=== PATIENT | female | born 1995 | race Caucasian/White ===

== ENCOUNTER 2017-05-16 08:36 | Emergency (ER) | payer OTHER ==
[~2017-05-16] VITALS: Ht 167.6 cm; Wt 52.2 kg
[~2017-05-16 08:36] MED LIST: HYDR-757 PO; IBUP-1773 PO; ORTHO TRICYCLINE
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
[2017-05-16] MEDS ORDERED: ACETAMINOPHEN 500 MG TAB (TYLENOL) PO ONE (09:00)
[2017-05-16] MEDS ORDERED: IBUPROFEN 800 MG (MOTRIN) TAB PO ONE (09:00)
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
== END 2017-05-16 09:41 | disposition home or self-care (01) ==
LOC: EDUNIT# 08:36 → ER 08:40
DX: G44.201 Tension-type headache, unspecified, intractable (principal); J30.2 Other seasonal allergic rhinitis; Z88.1 Allergy status to other antibiotic agents
CPT/HCPCS: 84703; 99283

== ENCOUNTER 2017-07-30 08:12 | Day surgery (SDC) | payer OTHER ==
[~2017-07-30] VITALS: Ht 167.6 cm; Wt 52.2 kg
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
[2017-07-30] MEDS ORDERED: NS IV 500 ML 500 ML ONE (08:40)
[2017-07-30] MEDS ORDERED: NS IV 500 ML 500 ML IV PRN (08:44)
[2017-07-30] MEDS ORDERED: HURRICAINE EXT TUBE (BENZOCAINE) XX PRN (08:45)
[2017-07-30 08:57] VITALS: BP 119/83
[2017-07-30] MEDS ORDERED: HURRICAINE EXT TUBE (BENZOCAINE) ONE (09:25)
[2017-07-30] MEDS ORDERED: fentaNYL INJECTION 100 MCG/2 ML AMP ONE (09:25)
[2017-07-30] MEDS ORDERED: MIDAZOLAM 2 MG/2 ML (VERSED) VIAL ONE ×4 (09:25)
[2017-07-30] MEDS: fentaNYL INJECTION 100 MCG/2 ML AMP IVP PRN ×2 (09:32→09:34)
[2017-07-30] MEDS: MIDAZOLAM 2 MG/2 ML (VERSED) VIAL IVP PRN ×4 (09:33→09:40)
--- NOTE | 2017-07-30 09:52 | History & Physicial ---
History of Present Illness History of Present Illness Reason for visit/HPI to undergo an upper endoscopy regarding dysphagia with a sensation of food impaction, that she experienced 3 days ago. Denies any ongoing symptoms of reflux disease. Date of Admission 07/30/17 Date Seen by Provider: July 30, 2017 Time Seen by Provider: 09:00 I consulted on this patient on 07/30/17 09:50 Attending Physician Franck Munoz MD Admitting Physician Cristino West MD Consult Allergies and Home Medications Allergies Coded Allergies: amoxicillin (Unverified Allergy, Mild, 07/26/12) Home Medications [Ortho Tricycline] , DAILY, (Reported) Patient Home Medication List Home Medication List Reviewed: Yes Past Qyqbqxf-Juvour-Hmnupb Hx Patient Social History Marrital Status: single Employed/Student: employed Alcohol Use: Denies Use Recreational Drug Use: No Smoking Status: Never a Smoker Recent Foreign Travel: No Contact w/other who traveled: No Recent Hopitalizations: No Recent Infectious Disease Expo: No Seasonal Allergies Seasonal Allergies: No Surgeries Yes (COLONOSCOPY) Respiratory No Cardiovascular No Neurological No Gastrointestinal No Musculoskeletal No Endocrine History of Endocrine Disorders: No HEENT History of HEENT Disorders: No Cancer No Psychosocial History of Psychiatric Problem: No Integumentary History of Skin or Integumenta: No Family Medical History Significant Family History: No Pertinent Family Hx Constitutional: no symptoms reported EENTM: no symptoms reported Respiratory: no symptoms reported Cardiovascular: no symptoms reported Gastrointestinal: see HPI Genitourinary: no symptoms reported Musculoskeletal: no symptoms reported Skin: no symptoms reported Psychiatric/Neurological: No Symptoms Reported Physical Exam Vital Signs Vital Signs - First Documented 07/30/17 08:57 Temp 99.1 Pulse 66 Resp 16 B/P (MAP) 119/83 (95) Pulse Ox 100 O2 Delivery Room Air Capillary Refill : General Appearance: No Apparent Distress, Anxious Neck: Normal Inspection Respiratory: Lungs Clear Cardiovascular: Regular Rate, Rhythm Gastrointestinal: Non Tender, Soft Extremity: Normal Inspection Neurologic/Psychiatric: Oriented x3 Skin: Warm/Dry Assessment/Plan Assessment and Plan lady with a dysphagia possibly due to a peptic stricture. For upper endoscopy with the potential for balloon dilatation. Admission Diagnosis Admission Status: Other (Outpt Proc) FRANCK MUNOZ MD July 30, 2017 9:52 am
--- NOTE | 2017-07-30 09:52 | Conscious Sedation/ASA ---
Conscious Sedation Pre-Proced Time Reviewed: 09:00 ASA Class: 1 Airway Mallampati Classification: ([place] appropriate class) I. II. III, IV Lungs Heart ASA score ASA 1: a normal healthy patient ASA 2: a patient with a mild systemic disease (mid diabetes, controlled hypertension, obesity ASA 3: a patient with a severe systemic disease that limits activity (angina , COPD, prior Myocardial infarction) ASA 4: a patient with an incapacitating disease that is a constant threat to life (CHF, renal failure) ASA 5: a moribund patient not expected to survive 24 hrs. (ruptured aneurysm) ASA 6: a declared brain patient whose organs are being harvested. For emergent operations, add the letter E after the classification Grade 1 Sedation Plan: Discussed options with patient/fam Note The patient is an appropriate candidate to undergo the planned procedure, sedation, and anesthesia. The patient immediately re-assessed prior to indication. FRANCK GUAJARDO MD July 30, 2017 9:52 am
--- NOTE | 2017-07-30 09:56 | Endo Procedure Record ---
Endo Procedure Report Date of Procedure Last Colonoscopy: No July 30, 2017 Surgeon (s) FRANCK GUAJARDO MD Post Procedure/Op Diagnosis Peptic esophageal stricture Procedure Performed Upper GI endoscopy with balloon dilatation to 18 mm Description of Procedure Anesthesia Type: Conscious Sedation Specimen(s) collected/removed none Description of the Procedure Indication for the procedure: This lady came in for an upper endoscopy to evaluate recent onset of dysphagia precipitated by a sensation of foreign impaction in her esophagus quite recently. Description of procedure: She was placed in left lateral decubitus position and her vital signs were monitored. Conscious sedation was achieved using Versed and fentanyl. The flexible gastroscope was introduced down the esophagus, past the stomach, into the proximal duodenum. Findings: Esophagus: Smooth, concentric stricture at the distal end. It had the appearance of a peptic stricture and therefore dilated to 18 mm with a balloon. Stomach and duodenum were normal She tolerated the procedure well and was taken back to the nursing area in a stable condition. Impression: Dysphagia due to a peptic stricture. Balloon dilatation completed. Recommend proton pump inhibitor therapy.ndication for the procedure: This lady presented with a feeling of food impaction in her esophagus, 3 days ago and continued to suffer dysphagia. Therefore, it was felt reasonable to perform an upper endoscopy. The potential for balloon dilatation was discussed with her. Copy Copies To 1: MARCO A WARE MD, XAVIER M MD July 30, 2017 9:56 am
--- NOTE | 2017-07-30 09:58 | Discharge Inst-Simple/Standard ---
Discharge Inst-Standard Discharge Medications New, Converted or Re-Newed RX: Other Patient Instructions/Follow Up Plan of Care/Instructions/FU: Please call for Protonix 40 mg daily for 30 days with 5 refills. Follow-up with her primary as needed Activity as Tolerated: Yes Discharge Diet: No Restrictions FRANCK GUAJARDO MD July 30, 2017 9:58 am
[2017-07-30 10:15] VITALS: BP 106/56
[2017-07-30 10:40] VITALS: BP 107/58
[2017-07-30 10:45] VITALS: BP 107/58
== END 2017-07-30 10:45 | disposition home or self-care (01) ==
LOC: ENDO 08:12
PROVIDERS: ATTEND Surgery
DX: K22.2 Esophageal obstruction (principal)
CPT/HCPCS: 84703

== ENCOUNTER 2017-12-19 04:54 | Emergency (ER) | payer OTHER, MEDICAID ==
[~2017-12-19] VITALS: Ht 162.6 cm; Wt 56.2 kg
[~2017-12-19 04:54] MED LIST changes: +HYDR-4226 PO; -HYDR-757 PO
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
[2017-12-19 07:07] VITALS: BP 121/63
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
== END 2017-12-19 07:08 | disposition home or self-care (01) ==
LOC: EDUNIT# 04:54 → ER 04:56
DX: M25.511 Pain in right shoulder (principal); M54.2 Cervicalgia; R40.2142 Coma scale, eyes open, spontaneous, at arrival to emergency department; R40.2252 Coma scale, best verbal response, oriented, at arrival to emergency department; R40.2362 Coma scale, best motor response, obeys commands, at arrival to emergency department; Z88.0 Allergy status to penicillin; Y08.89XA Assault by other specified means, initial encounter; Y92.143 Cell of prison as the place of occurrence of the external cause
CPT/HCPCS: 73000; 84703

== ENCOUNTER → 2020-09-12 | Outpatient (CLI) | payer SELFPAY ==
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
== END ==
LOC: RAD 17:58
PROVIDERS: ATTEND Nurse Practitioner Family
DX: S93.491A Sprain of other ligament of right ankle, initial encounter (principal); X58.XXXA Exposure to other specified factors, initial encounter
CPT/HCPCS: 73610

== ENCOUNTER 2021-04-22 09:10 | Emergency (ER) | payer MEDICAID ==
[~2021-04-22] VITALS: Ht 167.7 cm; Wt 56.2 kg
--- NOTE | 2021-04-22 09:37 | ED GU-Female ---
General Stated Complaint: VAG BLEED Source: patient Exam Limitations: no limitations History of Present Illness Date Seen by Provider: Apr 22, 2021 Time Seen by Provider: 09:18 Initial Comments 25-year-old female at roughly 9 weeks gestation coming in due to vaginal bleeding. She follows with Dr. SOUZA and has had a confirmed intrauterine based on ultrasound. 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 Vaginal bleeding starting around 2 AM this morning and has been significant. She saturated more than 5 pads and has been bleeding through them, and has blood through multiple sets of clothes. Denies any chest pain, shortness of breath, severe abdominal pain, diarrhea, vomiting, fever, or any other concerns. She is having some abdominal cramping. Allergies and Home Medications Allergies Coded Allergies: amoxicillin (Unverified Allergy, Mild, 07/26/12) Patient Home Medication List Home Medication List Reviewed: Yes [Ortho Tricycline] , DAILY, (Reported) Entered as Reported by: JUANCARLOS SANDY on 07/22/12 3178 Review of Systems Review of Systems Constitutional: No chills, No fever EENTM: No blurred vision Respiratory: No cough, No short of breath Cardiovascular: No chest pain Gastrointestinal: No abdominal pain Genitourinary: denies burning Musculoskeletal: no symptoms reported Skin: no symptoms reported Psychiatric/Neurological: No Symptoms Reported Endocrine: No Symptoms Reported Hematologic/Lymphatic: No Symptoms Reported All Other Systemes Reviewed Negative Unless Noted: Yes Past Esxqqnc-Rrqcdx-Bzcnny Hx Patient Social History Tobacco Use?: No Seasonal Allergies Seasonal Allergies: No Past Medical History Surgeries: Yes (COLONOSCOPY and EGD) Respiratory: No Cardiac: No Neurological: No Reproductive Disorders: No Genitourinary: No Gastrointestinal: No Musculoskeletal: No Endocrine: No HEENT: No Cancer: No Psychosocial: No Integumentary: No Family Medical History No Pertinent Family Hx Physical Exam Vital Signs Vital Signs - First Documented 04/22/21 09:20 Temp 36.5 Pulse 120 Resp 18 B/P (MAP) 123/79 (94) O2 Delivery Room Air Capillary Refill : Height, Weight, BMI Height: 5'4.00" Weight: 124lbs. 0.0oz. [id number]; 18.6 BMI Method:Stated General Appearance: WD/WN, other (Blood saturating her pants) HEENT: PERRL/EOMI, normal ENT inspection, pharynx normal Neck: non-tender, full range of motion, supple Cardiovascular: regular rate, rhythm, no edema, no murmur Respiratory: chest non-tender, lungs clear, normal breath sounds, no respiratory distress, no accessory muscle use Gastrointestinal: normal bowel sounds, non tender, soft; No distended, No guarding, No rebound Pelvic: other (cervical os appears slightly open with products of conception within it and significant amount of bleeding) Back: normal inspection, no CVA tenderness, no vertebral tenderness Extremities: normal range of motion, non-tender, normal inspection, no pedal edema, no calf tenderness Neurologic/Psychiatric: no motor/sensory deficits, alert, normal mood/affect Skin: normal color, warm/dry Lymphatic: no adenopathy Progress/Results/Core Measures Suspected Sepsis SIRS Temperature: Pulse: Respiratory Rate: Laboratory Tests 04/22/21 09:32: White Blood Count 13.3H Blood Pressure / Mean: Laboratory Tests 04/22/21 09:32: Creatinine 0.69, INR Comment 1.1, Platelet Count 283, Total Bilirubin 1.2H Results/Orders Lab Results Laboratory Tests Test 04/22/21 09:32 04/22/21 11:20 Range/Units White Blood Count 13.3 H 4.3-11.0 10^3/uL Red Blood Count 4.30 3.80-5.11 10^6/uL Hemoglobin 12.7 11.4 L 11.5-16.0 g/dL Hematocrit 36 33 L 35-52 % Mean Corpuscular Volume 84 80-99 fL Mean Corpuscular Hemoglobin 30 25-34 pg Mean Corpuscular Hemoglobin Concent 35 32-36 g/dL Red Cell Distribution Width 12.7 10.0-14.5 % Platelet Count 283 130-400 10^3/uL Mean Platelet Volume 10.7 9.0-12.2 fL Immature Granulocyte % (Auto) 0 % Neutrophils (%) (Auto) 73 42-75 % Lymphocytes (%) (Auto) 19 12-44 % Monocytes (%) (Auto) 7 0-12 % Eosinophils (%) (Auto) 0 0-10 % Basophils (%) (Auto) 1 0-10 % Neutrophils # (Auto) 9.7 H 1.8-7.8 10^3/uL Lymphocytes # (Auto) 2.5 1.0-4.0 10^3/uL Monocytes # (Auto) 0.9 0.0-1.0 10^3/uL Eosinophils # (Auto) 0.0 0.0-0.3 10^3/uL Basophils # (Auto) 0.1 0.0-0.1 10^3/uL Immature Granulocyte # (Auto) 0.1 0.0-0.1 10^3/uL Prothrombin Time 14.4 12.2-14.7 SEC INR Comment 1.1 0.8-1.4 Activated Partial Thromboplast Time 29 24-35 SEC Urine Color RED H Urine Clarity SL CLOUDY Urine pH 5.0 5-9 Urine Specific [place] >=1.030 1.016-1.022 Urine Protein 3+ H NEGATIVE Urine Glucose (UA) NEGATIVE NEGATIVE Urine Ketones 2+ H NEGATIVE Urine Nitrite POSITIVE H NEGATIVE Urine Bilirubin NEGATIVE NEGATIVE Urine Urobilinogen 2.0 < = 1.0 MG/DL Urine Leukocyte Esterase 2+ H NEGATIVE Urine RBC (Auto) 3+ H NEGATIVE Urine RBC TNTC H /HPF Urine WBC 5-10 H /HPF Urine Squamous Epithelial Cells 0-2 /HPF Urine Crystals NONE /LPF Urine Bacteria FEW H /HPF Urine Casts NONE /LPF Urine Mucus SMALL H /LPF Urine Culture Indicated YES Sodium Level 135 135-145 MMOL/L Potassium Level 3.7 3.6-5.0 MMOL/L Chloride Level 105 98-107 MMOL/L Carbon Dioxide Level 18 L 21-32 MMOL/L Anion Gap 12 5-14 MMOL/L Blood Urea Nitrogen 7 7-18 MG/DL Creatinine 0.69 0.60-1.30 MG/DL Estimat Glomerular Filtration Rate 125 BUN/Creatinine Ratio 10 Glucose Level 102 70-105 MG/DL Calcium Level 9.5 8.5-10.1 MG/DL Corrected Calcium 9.3 8.5-10.1 MG/DL Total Bilirubin 1.2 H 0.1-1.0 MG/DL Aspartate Amino Transf (AST/SGOT) 17 5-34 U/L Alanine Aminotransferase (ALT/SGPT) 11 0-55 U/L Alkaline Phosphatase 34 L 40-136 U/L Total Protein 7.5 6.4-8.2 GM/DL Albumin 4.2 3.2-4.5 GM/DL Human Chorionic Gonadotropin, Quant [id number] H <5 MIU/ML My Orders Orders - DEANA DOMINGO MD Cbc With Automated Diff (04/22/21 09:32) Comprehensive Metabolic Panel (04/22/21 09:32) Hcg,Quantitative (04/22/21 09:32) Protime With Inr (04/22/21 09:32) Partial Thromboplastin Time (04/22/21 09:32) Ua Culture If Indicated (04/22/21 09:32) Type And Screen (04/22/21 09:32) Urine Culture (04/22/21 09:32) Misoprostol Tablet (Cytotec Tablet) (04/22/21 09:58) Misoprostol Tablet (Cytotec Tablet) (04/22/21 10:00) Hemoglobin And Hematocrit (04/22/21 11:17) Us Ob<14 Wks Sngle W/Transvag (04/22/21 10:00) Vital Signs/I&O 04/22/21 09:20 Temp 36.5 Pulse 120 Resp 18 B/P (MAP) 123/79 (94) O2 Delivery Room Air Capillary Refill : Progress Note : Progress Note 25-year-old female with above history coming in due to vaginal bleeding while being . ABCs were intact and vitals were stable on presentation. She did have a confirmed intrauterine so this is not an ectopic . Pelvic exam was performed with a female nurse as a robotics testing technician. She did have what appeared to be products of conception within her cervical os. I was able to pull these out and the bleeding did slow down but continued. Contacted Dr. Souza can under his recommendations give the patient p.o. Cytotec 600 mg. Ultrasound was ordered to assess for any retained products of conception within her uterus. Basic labs including CBC and type and screen also ordered. Ultrasound with some blood and potentially retained products of conception. Dr. Souza did personally evaluate the patient and believes the bleeding has slowed down significantly and she would be stable to go home with outpatient follow-up. He recommends repeat doses of Cytotec at home which I have written for. Repeat hematocrit from 36-33 which is expected. Vitals remained stable on reassessment. Blood type is O+ so she will not require treatment for her Rh type. The patient was discharged home in stable condition with strict return precautions. Departure Impression Primary Impression: Miscarriage at 8 to 28 weeks gestation Additional Impression: UTI (urinary tract infection) Qualified Codes: N39.0 - Urinary tract infection, site not specified Disposition: 01 HOME, SELF-CARE Condition: Stable Departure-Patient Inst. Decision time for Depature: 12:11 Referrals: MARCO A WARE MD (PCP/Family) Primary Care Physician Patient Instructions: Miscarriage (DC), Urinary Tract Infection, Adult ED Add. Discharge Instructions: Please take the Cytotec which is the medicine he took in the emergency department every 4 hours x 2 doses today. It also looks like he may have a small urinary tract infection so we have sent antibiotics to your pharmacy which she will take for the next 5 days as well. Please follow-up with Dr. Souza. If bleeding increases significantly then please come back to the ER. The Cytotec will cause significant cramping which you can take Tylenol for. Scripts Misoprostol (Cytotec) 200 Mcg Tablet 600 MCG PO Q4H for 1 Day, #2 TAB for 2 doses total Prov: DEANA DOMINGO MD 04/22/21 Nitrofurantoin Macrocrystal (Nitrofurantoin) 100 Mg Capsule 100 MG PO BID for 5 Days, #10 CAP Prov: DEANA DOMINGO MD 04/22/21 Work/School Note: Work Release Form Date Seen in the Emergency Department: Apr 22, 2021 Return to Work: Apr 24, 2021 Restrictions: No Restrictions DEANA DOMINGO MD Apr 22, 2021 09:37
[2021-04-22 09:39] LABS: BASOPHILS # (AUTO) 0.1 10^3/uL (0.0-0.1); BASOPHILS % (AUTO) 1 % (0-10); BILIRUBIN,URINE NEGATIVE (NEGATIVE); CLARITY,URINE SL CLOUDY; COLOR,URINE RED; EOSINOPHILS % (AUTO) 0 % (0-10); GLUCOSE, URINE (UA) NEGATIVE (NEGATIVE); HEMATOCRIT 36 % (35-52); HEMOGLOBIN 12.7 g/dL (11.5-16.0); KETONES,URINE 2+ (NEGATIVE); LEUKOCYTE ESTERASE ,URINE 2+ (NEGATIVE); LYMPHOCYTES # (AUTO) 2.5 10^3/uL (1.0-4.0); LYMPHOCYTES % (AUTO) 19 % (12-44); MEAN CORPUSCULAR HEMOGLOBIN 30 pg (25-34); MEAN CORPUSCULAR HGB CONC 35 g/dL (32-36); MEAN CORPUSCULAR VOLUME 84 fL (80-99); MEAN PLATELET VOLUME 10.7 fL (9.0-12.2); MONOCYTES # (AUTO) 0.9 10^3/uL (0.0-1.0); MONOCYTES % (AUTO) 7 % (0-12); NEUTROPHILS # (AUTO) 9.7 10^3/uL (1.8-7.8); NEUTROPHILS % (AUTO) 73 % (42-75); NITRITE,URINE POSITIVE (NEGATIVE); PLATELET COUNT 283 10^3/uL (130-400); PROTEIN,URINE 3+ (NEGATIVE); WHITE BLOOD COUNT 13.3 10^3/uL (4.3-11.0)
[2021-04-22 09:48] LABS: ALBUMIN 4.2 GM/DL (3.2-4.5)
[2021-04-22 09:49] LABS: POTASSIUM 3.7 MMOL/L (3.6-5.0)
[2021-04-22 09:50] LABS: CALCIUM 9.5 MG/DL (8.5-10.1)
[2021-04-22 09:51] LABS: TOTAL PROTEIN 7.5 GM/DL (6.4-8.2)
[2021-04-22 09:53] LABS: BILIRUBIN,TOTAL 1.2 MG/DL (0.1-1.0)
[2021-04-22 09:55] LABS: CREATININE SERUM 0.69 MG/DL (0.60-1.30)
[2021-04-22 09:57] LABS: BACTERIA,URINE FEW /HPF; INR 1.1 (0.8-1.4); PROTHROMBIN TIME PATIENT 14.4 SEC (12.2-14.7); RBC,URINE TNTC /HPF; SQUAMOUS EPITHELIAL CELL,UR 0-2 /HPF
[2021-04-22 11:30] LABS: HEMOGLOBIN 11.4 g/dL (11.5-16.0)
--- NOTE | 2021-04-22 11:37 | Diagnostic Imaging Report ---
INDICATION: Positive test. Now with heavy vaginal bleeding and cramping. COMPARISON: None. TECHNIQUE: Routine transpelvic and transvaginal sonography was performed. FINDINGS: The uterus is anteverted. It measures 10.1 cm in length by 5 cm in AP dimension by 6.9 cm transversely. There is a moderate amount of heterogeneous, relatively hyperechoic debris within the endometrial canal. A few anechoic cystic appearing foci are also noted. Color flow images show presence of vascularity to this area. The area in question measures 1.8 cm in AP thickness. There visualized portions of the cervix are unremarkable. No adnexal mass or free fluid is seen. There is no evidence of adnexal ectopic . A corpus luteal cyst is noted on the left. It measures 2 x 1.8 x 1.7 cm. Otherwise, the ovaries have a normal appearance. The right ovary measures 1.7 x 2.4 x 1.6 cm. The left ovary measures 3.5 x 2.5 x 1.8 cm. IMPRESSION: 1. Thickened heterogeneous endometrium with areas of internal vascularity as described above. Conceivably, the findings could be on the basis of retained products of conception status post failed . Molar is also a consideration. Followup with serial beta hCG is recommended. 2. No sonographic evidence of ectopic . Dictated by: Dictated on workstation # [id number]
[2021-04-22] MEDS ORDERED: NITR100C PO (12:17)
[2021-04-22] MEDS ORDERED: MISO200T PO (12:17)
[2021-04-22 12:28] VITALS: BP 124/80
== END 2021-04-22 12:28 | disposition home or self-care (01) ==
LOC: EDUNIT# 09:10 → ER 09:13
DX: O03.9 Complete or unspecified spontaneous abortion without complication (principal); N39.0 Urinary tract infection, site not specified
CPT/HCPCS: 36415; 76801; 76817; 80053; 81000; 84702; 85014; 85018; 85025; 85610; 85730; 86850; 86900; 86901; 87088

== ENCOUNTER → 2021-05-01 | Outpatient (CLI) | payer MEDICAID ==
[~2021-05-01] MED LIST changes: +ACHD5005 PO; +MISO200T PO; +NITR100C PO
--- NOTE | 2021-05-01 17:03 | Diagnostic Imaging Report ---
PROCEDURE: US Non-OB pelvis comp/trans. TECHNIQUE: Multiple real-time grayscale images were obtained of the pelvis in various projections endovaginally. Transabdominal imaging was also performed. INDICATION: Incomplete miscarriage with delayed hemorrhage. Bleeding and cramping for one week. Positive test prior to 04/22/2021. COMPARISON: 04/22/2021. FINDINGS: The uterus measures 7.0 x 4.9 x 6.7 cm in size. The endometrium remains thickened, measuring 1.9 cm, and heterogeneous with mild internal vascularity identified. This region extends down to the lower uterine segment. This appears similar to the prior exam. The right ovary measures 3.1 x 2.3 x 1.5 cm, and the left ovary measures 2.6 x 2.3 x 1.8 cm. No free fluid is seen. IMPRESSION: 1. Enlarged, heterogeneous endometrium, similar to the prior exam. This may represent retained products of conception, although a molar is in the differential as well. Recommend correlation with quantitative beta-hCG. Dictated by: Dictated on workstation # [id number]
== END ==
LOC: RAD 16:00
PROVIDERS: ATTEND Obstetrics & Gynecology
DX: O03.1 Delayed or excessive hemorrhage following incomplete spontaneous abortion (principal); O26.899 Other specified pregnancy related conditions, unspecified trimester; R93.89 Abnormal findings on diagnostic imaging of other specified body structures; Z3A.00 Weeks of gestation of pregnancy not specified
CPT/HCPCS: 76830; 76856

== ENCOUNTER 2021-05-03 06:37 | Day surgery (SDC) | payer OTHER, MEDICAID ==
[2021-05-03] VITALS (11 sets, daily range): BP systolic 94–115; BP diastolic 45–70
[~2021-05-03 06:37] MED LIST changes: -ACHD5005 PO
[2021-05-03] MEDS: LACTATED RINGERS 1,000 ML IV PRN ×2 (07:02→08:03)
[2021-05-03] MEDS ORDERED: MIDAZOLAM 2 MG/2 ML (VERSED) VIAL ONE (07:10)
[2021-05-03] MEDS ORDERED: fentaNYL INJ 100 MCG/2 ML AMP ONE (07:10)
[2021-05-03 07:12] LABS: BASOPHILS % (AUTO) 1 % (0-10); EOSINOPHILS % (AUTO) 0 % (0-10); HEMATOCRIT 32 % (35-52); HEMOGLOBIN 10.9 g/dL (11.5-16.0); LYMPHOCYTES # (AUTO) 1.6 10^3/uL (1.0-4.0); LYMPHOCYTES % (AUTO) 27 % (12-44); MEAN CORPUSCULAR HEMOGLOBIN 30 pg (25-34); MEAN CORPUSCULAR HGB CONC 34 g/dL (32-36); MEAN CORPUSCULAR VOLUME 87 fL (80-99); MEAN PLATELET VOLUME 10.5 fL (9.0-12.2); MONOCYTES # (AUTO) 0.5 10^3/uL (0.0-1.0); MONOCYTES % (AUTO) 9 % (0-12); NEUTROPHILS # (AUTO) 3.8 10^3/uL (1.8-7.8); NEUTROPHILS % (AUTO) 63 % (42-75); PLATELET COUNT 268 10^3/uL (130-400); WHITE BLOOD COUNT 6.1 10^3/uL (4.3-11.0)
[2021-05-03] MEDS ORDERED: LIDOCAINE PF 2% 5 ML (XYLOCAINE) VIAL ONE (07:23)
[2021-05-03] MEDS ORDERED: proPOfol 200 MG/20 ML (DIPRIVAN) VIAL IV ONE (07:23)
[2021-05-03] MEDS ORDERED: ONDANSETRON 4 MG/2 ML (SDV) Z0FRAN ONE (07:23)
--- NOTE | 2021-05-03 07:26 | Progress Note-Pre Operative ---
Pre-Operative Progress Note H&P Reviewed The H&P was reviewed, patient examined and no changes noted. Date Seen by Provider: May 03, 2021 Time Seen by Provider: 07:10 Date H&P Reviewed: May 03, 2021 Time H&P Reviewed: 07:00 Pre-Operative Diagnosis: Incomplete MICA graf MICHAEL S DO May 03, 2021 07:26
[2021-05-03] MEDS ORDERED: D5 LR IV SOLUTION 1,000 ML IV SCH (07:30)
[2021-05-03] MEDS ORDERED: ONDANSETRON 4 MG/2 ML (SDV) Z0FRAN IVP PRN (07:30)
[2021-05-03] MEDS ORDERED: KETOROLAC 30 MG/ML VIAL IVP ONE (07:30)
[2021-05-03] MEDS ORDERED: HYDROcodone/APAP 5 MG/325 MG (LORTAB) TAB PO PRN (07:30)
[2021-05-03] MEDS ORDERED: SEVOFLURANE (ULTANE) 15 ML INHAL SOLN ONE (08:01)
[2021-05-03] MEDS ORDERED: ACHD5005 PO (08:05)
[2021-05-03] MEDS ORDERED: IBUP-1773 PO (08:05)
--- NOTE | 2021-05-03 08:06 | Discharge Inst-Women's Service ---
Discharge Inst-Women's Serv Depart Medication/Instructions New, Converted or Re-Newed RX: Transmitted to Pharmacy Problems Reviewed?: Yes Consults/Follow Up Additional Follow Up: Yes Orders/Referrals Dr. Nino in 2 weeks Diet Discharge Diet: No Restrictions Symptoms to Report to : Bleeding Excessive, Pain Increased, Fever Over 101 Degrees F, Vaginal Bleeding Increase, Questions/Concerns For Any Problems or Questions: Contact Your Physician JOVAN NINO DO May 03, 2021 08:06
--- NOTE | 2021-05-03 09:35 | OPERATIVE REPORT ---
DATE OF SERVICE: PREOPERATIVE DIAGNOSES: A 25-year-old female with incomplete . POSTOPERATIVE DIAGNOSIS: A 25-year-old female with incomplete . PROCEDURE: Suction D and C. SURGEON: Jovan Nino DO ANESTHESIA: LMA general. ESTIMATED BLOOD LOSS: 100 mL. URINE OUTPUT: 50 mL clear drained at start of the procedure. FLUIDS: 800 mL lactated Ringer's solution. FINDINGS: A small to moderate amount of retained products of conception. SPECIMEN SENT: Products of conception as well as an ectocervical polyp. INDICATIONS FOR PROCEDURE: This 25-year-old female is a patient who had been to the Emergency Department and evaluated for what was thought to be a complete AB; however, she continued to have bleeding and cramping. Follow up ultrasound showed continued thickening in the endometrium consistent with possible retained products of conception as well as an hCG that had not leveled out as it would be expected. Discussed with the patient proceeding with suction D and C and after all of her questions were answered in the preoperative area, consent was obtained and the patient was taken to the operating room. OPERATIVE REPORT IN DETAIL: Once in the operating room, anesthesia was found to be adequate, placed in a dorsal lithotomy position, prepped and draped in normal sterile fashion. A timeout was performed, and anesthesia was administered. A weighted speculum inserted to the patient's vagina, which allows me to drain the bladder using straight catheterization. A right-angle retractor was used to visualize the cervix, which was grasped at 12 o'clock position using a long Allis clamp. I then gently sound the uterine cavity, depth was found to be 8 cm. There was a polyp at the ectocervical margin. It was grasped with a ring forceps and twisted off, which causes a small amount of bleeding, but not too significant. It was made hemostatic with silver nitrate. I then gently dilated the cervix using Hegar dilators to allow placement of a 7 cm rigid [place] suction curette. Once this was in place in the uterus, I applied the [place] suction to suction of 70 mmHg and methodically rotate the suction curette clearing the endometrial cavity of all products of conception and debris. This was done on several different passes. A gentle sharp curettage was performed after which there was a very gentle uterine cry noted. I then performed one final pass with the suction curette after which the bleeding seems to have subsided somewhat. There is still a little bit of bleeding from the polyp area on the cervix. Therefore, 3-0 Vicryl sutures placed in a [id number] fashion over this area that continues to bleed, which offers hemostasis after this was placed. After that all instruments were removed from the patient's vagina. The patient tolerated the procedure well and was taken to recovery area in stable condition. Lap and sponge counts were correct at the end of the procedure. Instrument counts correct as well. Job ID: [id number] DocumentID: [id number] Dictated Date: 05/03/2021 08:14:39 Cro Date: 05/03/2021 09:34:41 Dictated By: JOVAN NINO DO
--- NOTE | 2021-05-03 10:39 | Anesthesia-General Post-Op ---
General Patient Condition Mental Status/LOC: Same as Preop Cardiovascular: Satisfactory Nausea/Vomiting: Absent Respiratory: Satisfactory Pain: Controlled Complications: Absent Post Op Complications Complications None Follow Up Care/Instructions Patient Instructions None needed. Anesthesia/Patient Condition Patient Condition Patient is doing well, no complaints, stable vital signs, no apparent adverse anesthesia problems. No complications reported per nursing. ALISA HARRINGTON CRNA May 03, 2021 10:39
== END 2021-05-03 09:55 | disposition home or self-care (01) ==
LOC: SDC 06:37
PROVIDERS: ATTEND Obstetrics & Gynecology
DX: O03.9 Complete or unspecified spontaneous abortion without complication (principal); N84.1 Polyp of cervix uteri
CPT/HCPCS: 36415; 85025; 86850; 86900; 86901; 87081

== ENCOUNTER → 2023-01-07 | Outpatient (CLI) | payer BC ==
[~2023-01-07] MED LIST changes: +ACHD5005 PO
--- NOTE | 2023-01-07 10:52 | Diagnostic Imaging Report ---
PROCEDURE: Pelvic comp/transvaginal sonogram. TECHNIQUE: Complete transabdominal and transvaginal pelvic ultrasound was performed. In addition, limited pelvic Doppler was performed. INDICATION: Amenorrhea. FINDINGS: Uterus is anteverted measuring 7.0 x 2.7 x 4.1 cm. Endometrium is 6 mm in thickness. There is a small cyst in the region of the lower uterine segment and cervix approximately 6 mm in size. Right ovary measures 3.0 x 1.6 x 4.1 cm and left ovary measures 2.1 x 1.2 x 1.8 cm. Right ovary does contain a 3.4 cm cyst. Left ovary contains multiple follicles. There is blood flow to both ovaries. No free fluid is detected. IMPRESSION: 3.4 cm right ovarian cyst. No other significant abnormality is detected. Dictated by: Dictated on workstation # [id number]
== END ==
LOC: RAD 07:50
PROVIDERS: ATTEND Nurse Practitioner Women's Health
DX: N83.291 Other ovarian cyst, right side (principal)
CPT/HCPCS: 76830; 76856